=== PATIENT | male | born 1935 | race Caucasian/White ===

== ENCOUNTER 2018-09-25 12:40 | Inpatient (IN) | payer OTHER, MEDICARE ==
[~2018-09-25] VITALS: Ht 180.3 cm; Wt 74.8 kg
--- NOTE | ~2018-09-25 | HC ---
[facility] [place] [address] CONSULTATION Name: ROSITA POLANCO Room #: 216-P [facility] IN M.R.#: [id number] Admission: 09/25/18 Attend Phys: Apoorva Watkins Discharge: Date of : 35 Report #: [id number] THIS REPORT FOR: //name// CC: Elena VIVAR physician/PCP Apoorva Watkins DATE OF SERVICE: 09/28/2018 PALLIATIVE CARE CONSULTATION: REQUESTING PHYSICIAN: Dr. Otto and Dr. Valderrama. HISTORY OF PRESENT ILLNESS: The patient is an 83-year-old male who presented to [facility] with a report of altered mental status as well as dyspnea. 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 He does also have worsening dementia over the last 3 months, significantly worsening difficulty with word finding and confusion per his daughter, who I am speaking with today. The patient has been calling out all day and appears to be confused at most times, occasionally able to respond in a meaningful way, but otherwise difficulty with attention level. The patient seems to report abdominal pain, although it is difficult to tell based on his responses. PAST MEDICAL HISTORY: Dementia, AAA, COPD, hypertension, aortic stenosis, tricuspid regurg, dysphagia. PAST SURGICAL HISTORY: He has had a TURP, right carotid endarterectomy. He has had a right fem-pop bypass. He has had multiple cardiac stents placed. He has had a coronary artery bypass graft. He has also had a right hip ORIF. FAMILY HISTORY: Noncontributory. ALLERGIES: REPORTEDLY ATIVAN CAUSED WORSENING AGITATION; HALDOL WITH SIMILAR RESULTS; MORPHINE WITH GASTRIC UPSET AND PENICILLIN WITH ANAPHYLACTIC TYPE REACTION. SOCIAL HISTORY: The patient is currently DNR. The patient's daughter is present who is the medical decision maker for the patient along with her brothers has participated in his medical care. He is previously a resident at [facility]. REVIEW OF SYSTEMS: Unable to obtain due to medical condition. PHYSICAL EXAMINATION: [facility] [address] [place] [address] CONSULTATION Name: ROSITA POLANCO Room #: 216-P [facility] IN ..#: [id number] Admission: 09/25/18 Attend Phys: Apoorva Watkins Discharge: Date of : 35 Report #: [id number] VITAL SIGNS: Temperature 36.3, pulse 74, respirations 26, blood pressure 90/71, 95% on room air. GENERAL: The patient is not alert. His orientation level was poor. Unable to assess otherwise. HEENT: Extraocular muscles appear to be intact. No scleral icterus. No conjunctival injection. CARDIOVASCULAR: He does have mild lower extremity edema, significant systolic murmur. RESPIRATORY: Diffuse rales noted, significant secretions noted. ABDOMEN: Soft, appears to be mildly tender to palpation, although again difficult to assess at this current point in time. He has diminished bowel sounds noted throughout. LABORATORY DATA: Hemoglobin 13.8, creatinine 1.1. Video swallow with aspirations of thin and nectar thickened liquids. Echo noted in HPI. ASSESSMENT AND PLAN: 1. Severe aortic stenosis. At this point in time, he is not a surgical candidate given his multiple comorbidities and tricuspid regurgitation as well. I did discuss this with daughter who is aware. She desires for him to have a palliative type care and they would prefer [facility] if patient is able to achieve a good level of comfort. Prior to that transfer, did discuss hospice and what that would represent. Patient is currently DNR status. They are understanding that the patient may have a decline in his dysphagia, which may ultimately lead to his from something such as acute kidney injury. Did discuss medications involved in palliative care as well as the use of benzodiazepines for anxiety and morphine for pain management despite its problems with the patient previous. She is amenable to this at this time. I spent approximately 45 minutes in discussion of advanced care planning today. 2. Abdominal pain. We will obtain KUB. Awaiting results for this to ensure that he does not have ileus. Dulcolax p.r.n. suppository if he is found to have ileus or constipation. Otherwise, we will manage symptoms with Roxanol and Ativan for anxiety. 3. Severe systolic heart failure again noted above in first assessment. Discussing hospice, which we will pursue at discharge when the patient is stable from a standpoint of comfort perspective. Thank you very much for the consultation. By: [id number] Duncan Ye DO /nt
--- NOTE | ~2018-09-25 | HC ---
[facility] [place] [address] CONSULTATION Name: ROSITA POLANCO Room #: 216-P [facility] IN M.R.#: [id number] Admission: 09/25/18 Attend Phys: Apoorva Watkins Discharge: Date of : 35 Report #: [id number] THIS REPORT FOR: //name// CC: Elena Nascimento [facility] physician/PCP Apoorva Watkins HISTORY OF PRESENT ILLNESS: The patient is an 83-year-old male who lives in an assisted living. He has had some progressive and worsening dementia. He comes in with progressive weakness, lethargy, confusion and altered mental status over the last couple of weeks. He denies any chest pain or pressure. There is a daughter or granddaughter in the room who is denying any other issues and also states that the family would like medical somewhat conservative measures here as his dementia is fairly profound. He had a trivial elevation of troponin of 0.17 and 0.27. I do not believe this signifies significant myocardial ischemia. He has had a prior bypass surgery and had been followed in the past by my prior partner, Dr. Hill, but has been lost to Cardiology followup since his progressive dementia. He is really not much in the way of any verbal. To me, he denies any chest pain. MEDICATIONS: His medications have been lisinopril 5, sertraline, hydralazine p.r.n., Imodium p.r.n. and an aspirin. He does not appear to be on a statin. He is on Seroquel for agitation, Depakote at night, risperidone 7.5 b.i.d. and Zoloft 50 mg a day. PAST MEDICAL HISTORY: Positive for coronary artery disease with a prior CABG, AAA repair, stent graft, hypertension, hypercholesterolemia, COPD, carotid endarterectomy, significant peripheral vascular disease, right fem-pop and hip fracture. ALLERGIES: PENICILLIN, MORPHINE, HALDOL AND ATIVAN. SOCIAL HISTORY: Lives in assisted memory care. No current tobacco or alcohol. LABORATORY WORK: Creatinine 0.8 and potassium 3.3. LDL was 72. UA suggested possible urinary tract infection. The culture is pending. White count is 13.2, H and H 15 and 45. Troponin is 0.27 that is peak. EKG is sinus rhythm, intraventricular conduction delay, incomplete left bundle and PVCs are noted. The patient has had some nonsustained VT asymptomatic on the monitor. PHYSICAL EXAMINATION: GENERAL: He is fairly somnolent and will respond some. VITAL SIGNS: Blood pressure is 96/52 and pulse is 80s. HEENT: Eyes reveal xanthelasmas. Pharynx is clear. Eyes show arcus senilis. NECK: Shows preserved upstrokes. Faint bruit is noted on the right. LUNGS: Prolonged expiratory phase, but clear. CARDIOVASCULAR: Regular rate and rhythm, S1, S2, distant heart tones without [facility] [address] [place] [address] CONSULTATION Name: ROSITA POLANCO ALAINA Room #: 216-P ADM IN M.R.#: [id number] Admission: 09/25/18 Attend Phys: Apoorva Watkins Discharge: Date of : 35 Report #: [id number] significant murmur. ABDOMEN: Soft. No palpable aorta. EXTREMITIES: Reveal trace nonpitting edema. NEUROLOGIC: Appears to be nonfocal. He moves all extremities. Distal pulses are diminished. I did not ambulate him. MUSCULOSKELETAL: Generalized arthritic changes. ASSESSMENT: 1. Urinary tract infection with elevated white count. 2. Mental status change on top of progressive dementia, probable secondary to infection. 3. Trivial troponin elevation, I do not perceive significant myocardial ischemia here. However, certainly concur with the family, we will opt for conservative medical therapy. 4. Hypertension by history. 5. Degenerative joint disease. 6. Peripheral vascular disease with prior aortic aneurysm repair, fem-pop and carotid endarterectomy. 7. Coronary artery disease with history of coronary artery bypass graft. RECOMMENDATIONS AND PLAN: We will increase the beta rahel due to the nonsustained VT. I will obtain a repeat EKG today in the a.m. and an echo. Barring he does not become unstable, I would opt for medical therapy here and did discuss this with his daughter. I will also discuss with primary. One could consider the addition of Imdur 30 in this setting. I will see how his blood pressure responds to the increased beta rahel. Thank you for asking me to assist in the care of this patient. By: 0919 0032 Jose Roberto Otto MD, FACC /nt
--- NOTE | ~2018-09-25 | EKG ---
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
[~2018-09-25 12:40] MED LIST: ACETAMINOPHEN325 M1 PO; ASPIRIN PO; ASPIRIN325 PO; AUGMENTIN 875-1 EACH PO; BACTROBAN22 GM TP; BENADRYL25 MG PO; CEFTIN 250 MG250 MG PO; CENTRUM SILVER1 EAC4 PO; DEPAKOTE ER500 M1 PO; DEPAKOTE SPRIN125 MG PO; ENOXAPARIN40 MG/0.1 SUBQ; FENTANYL 0.50 MCG/ML IV PUSH; GABAPENTIN 100100 MG PO; GABAPENTIN100 MG PO; GEODON20 M1 IM; HYDROCHLOROTH12.5 M1 PO; HYDROCHLOROTH12.5 MG PO; HYDROCODONE-AP1 EAC6 PO; LEVAQUIN 250 M250 MG PO; LIPITOR20 MG PO; LISINOPRIL20 MG PO; LOPERAMIDE 2 MG2 M1 PO; LORTAB 5 MG/5001 TA1 PO; MAG-AL PLUS SUS30 ML PO; MILK OF MA400 MG/5 M PO; NAMENDA 10 MG T10 MG PO; NAMENDA 5 MG TAB5 M1 PO; NAMENDA XR21 MG PO; ONDANSETRON2 MG/1 ML IV PUSH; ONE DAILY COMP1 EAC1 PO; ORAZINC220 MG PO; POTASSIUM20 PO; PROZAC10 MG PO; REMERON15 MG PO; ROCEPHIN 1 GM VL1 G1 IV; SENNA LAXATIVE8.6 MG PO; SEROQUEL 12.512.5 MG PO; SEROQUEL 25 MG25 M1 PO; STRESS B-COMPL1 EACH PO; TAMSULOSIN HCL0.4 MG PO; TYLENOL325 MG PO; URECHOLINE 10 M10 M1 PO; URECHOLINE 25 M25 M2 PO; ZYPREXA 5 MG TAB5 M1 PO; ZYPREXA 5 MG TAB5 MG PO; [UNRECOGNIZED DRUG - OTHER] PO
[2018-09-25 12:41] VITALS: BP 119/74
[2018-09-25 12:59] LABS: ABSOLUTE NEUTROPHILS 9.9 thou/uL (1.4-8.2); BASOPHILS 0.2 % (0.0-2.0); EOSINOPHILS 0.3 % (0.0-3.0); LYMPHOCYTES 4.1 % (24.0-44.0); MCH 32.3 pg (26.0-34.0); MCHC 33.3 g/dL (28.0-37.0); MCV 96.8 fL (80.0-100.0); MONOCYTES 8.3 % (1.0-8.0); POLYS 87.1 % (36.0-66.0); RBC 4.64 mil/uL (4.50-6.00); RDW 13.6 % (10.5-14.5); WBC 13.2 thou/uL (4.0-11.0)
[2018-09-25 13:13] LABS: PLATELET COUNT 231 thou/uL (150-400)
[2018-09-25 13:17] LABS: AMP/METHAMP Negative (Negative); BARBITURATES Negative (Negative); BENZODIAZEPINES Negative (Negative); COCAINE Negative (Negative); METHADONE Negative (Negative); OPIATES Negative (Negative); PCP Negative (Negative)
[2018-09-25 13:19] LABS: ICTOTEST (BILI CONFIRMATORY) Negative (Negative); URINE BILIRUBIN NEGATIVE (Negative); URINE BLOOD 1+ (Negative); URINE CLARITY HAZY; URINE COLOR YELLOW; URINE GLUCOSE-RANDOM* NEGATIVE (Negative); URINE KETONES 1+ (Negative); URINE LEUKOCYTES-REFLEX 2+ (Negative); URINE NITRITE-REFLEX NEGATIVE (Negative); URINE PROTEIN (DIPSTICK) 1+ (Negative); URINE SPECIFIC GRAVITY 1.025 (1.005-1.035)
[2018-09-25 13:21] LABS: SQUAMOUS None Seen /LPF (0-3); URINE RBC 3-10 Few /HPF (0-2); URINE WBC-REFLEX 6-15 Few /HPF (0-5)
[2018-09-25 13:22] LABS: BACTERIA-REFLEX 1-9 Few /HPF (None Seen); CASTS None Seen /LPF (None Seen); CRYSTALS None Seen /LPF (None Seen)
[2018-09-25 14:10] LABS: ALBUMIN 2.6 g/dL (3.4-5.0); CALCIUM 8.5 mg/dL (8.5-10.1); CREATININE 0.8 mg/dL (0.7-1.3); POTASSIUM 3.3 mmol/L (3.5-5.1); TOTAL BILIRUBIN 0.6 mg/dL (<0.1-1.0); TOTAL PROTEIN 6.1 g/dL (6.4-8.2)
[2018-09-25] MEDS ORDERED: BUSPIRONE HCL10 MG PO (14:31)
[2018-09-25] MEDS ORDERED: LISINOPRIL5 MG PO (14:31)
[2018-09-25] MEDS ORDERED: ZOLOFT50 MG PO (14:32)
[2018-09-25] MEDS ORDERED: ACETAMINOPHEN325 M1 PO (14:33)
[2018-09-25] MEDS ORDERED: ALMACONE LIQUI355 ML PO (14:34)
[2018-09-25 14:35] VITALS: BP 103/65
[2018-09-25] MEDS ORDERED: FLEXERIL PO (14:35)
[2018-09-25] MEDS ORDERED: HYDRALAZINE 10M10 MG PO (14:35)
[2018-09-25] MEDS ORDERED: LOPERAMIDE 2 MG2 M1 PO (14:35)
[2018-09-25 14:43] VITALS: BP 103/65
[2018-09-25 14:46] LABS: CHOLESTEROL 126 mg/dL (<200); HDL CHOLESTEROL 33 mg/dL (>40); LDL CHOLESTEROL 72 mg/dL (<100); TC:HDL 3.8 Ratio (Not establshd); TRIGLYCERIDE 105 mg/dL (<150); VLDL 21 mg/dL (<40)
[2018-09-25 15:00] VITALS: BP 114/78
[2018-09-25 15:11] LABS: TSH 0.727 uIU/mL (0.358-3.740)
[2018-09-25] MEDS ORDERED: MULTI VITAMIN1 EACH PO (19:01)
[2018-09-25 19:19] VITALS: BP 118/83
[2018-09-25] MEDS ORDERED: COLACE100 MG PO (19:30)
--- NOTE | 2018-09-25 19:50 | NUR ---
ASSUMED CARE OF PT FROM ER AT APPROX 1500. PT ALERT AND ORIENTED TO SELF. PT HAS DEMENTIA AND COMES FROM [facility] WITH MEMORY CARE. PT HAD TWO MEDS ON EMAR THAT DAUGHTER STATED HE DID NOT TAKE ANYMORE (DEPAKOTE AND SEROQUEL). MED LIST SENT FROM [facility] AND MED'S RE-RECONCILED. DAUGHTER STATES LOW DOSE BENADRYL WORKS BEST FOR AGITATION. BRANDY CONSULTED FOR CARDIOLOGY. PT DENIES PAIN. PT HAS LOOSE COUGH WITH POOR EFFORT. PT WAS VERY SAD AFTER HIS CHILDREN LEFT AND STATED HE WANTED TO GO HOME. REASSURANCE GIVEN AND DAUGHTER TALKED WITH HIM ON THE PHONE. PT HAS RIGHT BKA AND PROSTHESIS LEFT AT HOME. BED ALARM ON AND PT NEXT TO NURSES STATION.
[2018-09-25 23:03] VITALS: BP 118/83
--- NOTE | 2018-09-26 03:06 | NUR ---
ASSUMED PT CARE AT 1900. PT ORIENTED ONLY TO SELF, AGITATED, TEARFUL AND SAD. PT CONFUSED AND FREQUENTLY ASKED TO GO BACK HOME. FREQUENT REORIENTATION WHEN AWAKE. NO COMPLAINTS OF CHESTPAIN/PAIN, VITAL SIGNS STABLE, ASSESSMENT CHARTED. FALL PRECAUTIONS INPLACE, PT CLOSE TO NURSING STATION FOR CLOSE MONITORING. PT RESTED WELL THROUGH THE NIGHT. PROGRESSING TOWARD PLAN OF CARE. WILL CONTINUE TO MONITOR.
[2018-09-26 04:13] VITALS: BP 116/94
[2018-09-26 05:33] LABS: ALBUMIN 2.6 g/dL (3.4-5.0); CALCIUM 8.2 mg/dL (8.5-10.1); CREATININE 0.8 mg/dL (0.7-1.3); PHOSPHORUS 3.2 mg/dL (2.5-4.9); POTASSIUM 4.2 mmol/L (3.5-5.1); TROPONIN-I 0.27 ng/mL (<0.06)
[2018-09-26 08:00] VITALS: BP 95/52
[2018-09-26 12:30] VITALS: BP 114/65
[2018-09-26 15:50] VITALS: BP 93/61
--- NOTE | 2018-09-26 16:38 | NUR ---
VSS REMAINS NSR WITH BBB FREQUENT PVC'S, TRIPLETS, COUPLETS. LUNGSCOURSE ON LEFT SIDE, PRODUCTIVE COUGH OF WHITE SPUTUM, O2 SAT 93% RA. PT TODAY WITH BREAKFAST HAD COUGHING EPISODE LASTING 1/2 HOUR AFTER BEING FED SCRAMBLED EGGS BY DAUGHTER. DR COURTNEY AWARE AND MADE NPO UNTIL SWALLOW EVAL IN AM. PT REMAINS ORINTED TO JUST NAME. RESTLESS IN BED, INCONTINENT OF LARGE AMTS ORANGECOLOR URINE. WILL CONTINUE TO MONITR AND CARE FOR PTPER PLAN OF CARE
[2018-09-26 20:08] VITALS: BP 133/91
--- NOTE | 2018-09-26 21:55 | EKG ---
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 Setter: WG : 1935 Requested By: Pedro Fritz Order Number: [id number] MD: Migue Mantilla Measurements Intervals [place] Rate: 94 P: 6 [place]: 175 QRS: 265 QRSD: 163 T: 102 QT: 445 QTc: 557 Interpretive Statements Sinus rhythm Paired ventricular premature complexes Probable left atrial enlargement IVCD, consider atypical LBBB Baseline wander in lead(s) II Compared to ECG 06/05/2015 00:28:17 Ventricular premature complex(es) now present Left ventricular hypertrophy no longer present Electronically Signed On 09-26-2018 21:55:41 FIREPOT OPERATOR AND TENDER by Migue Mantilla [email or web address] <ELECTRONICALLY SIGNED> By: Migue Mantilla MD 09/26/18 2155 1244 1244 Migue Mantilla MD /EPI
--- NOTE | 2018-09-26 22:03 | EKG ---
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
[2018-09-27] VITALS (7 sets, daily range): BP systolic 91–139; BP diastolic 62–85
[2018-09-27 04:27] LABS: CALCIUM 8.4 mg/dL (8.5-10.1); POTASSIUM 3.6 mmol/L (3.5-5.1)
[2018-09-27 04:28] LABS: ABSOLUTE NEUTROPHILS 8.1 thou/uL (1.4-8.2); BASOPHILS 0.4 % (0.0-2.0); EOSINOPHILS 0.2 % (0.0-3.0); HEMOGLOBIN 13.7 gm/dL (14.0-18.0); LYMPHOCYTES 2.5 % (24.0-44.0); MCH 32.4 pg (26.0-34.0); MCHC 32.7 g/dL (28.0-37.0); MCV 98.9 fL (80.0-100.0); MONOCYTES 7.3 % (1.0-8.0); PLATELET COUNT 202 thou/uL (150-400); POLYS 89.6 % (36.0-66.0); RBC 4.24 mil/uL (4.50-6.00); RDW 13.5 % (10.5-14.5)
--- NOTE | 2018-09-27 05:27 | NUR ---
ASSUMED PT CARE AT 1900. PT ORIENTED ONLY TO SELF. FREQUENT REORIENTATION DONE. VITAL SIGNS STABLE, ASSESSMENT CHARTED. NO COMPLAINTS OF PAIN. PT VERY RESTLESS AND AGITATED. BENADRYL GIVEN BUT DID NOT SEEM TO HELP. PT RESTED THROUGH THE NIGHT AND BARELY SLEPT. PT CLOSE TO NURSING STATION FOR CLOSE MONITORING. PT DISCONTINUED IV. NEW IV INSERTED IN LEFT FOREARM. FAMILY CALLED TO CHECK ON PT AND REQUESTED THAT PHYSICIAN GIVE HER A CALL (QUESTIONING WHY HE IS NOT YET ON ANTIBIOTICS). MESSAGE WILL BE PASSED ON TO DAY NURSE. PROGRESSING SLOWLY TOWARD PLAN OF CARE. WILL CONTINUE TO CLOSELY MONITOR. VIDEO SWALLOW IN AM.
[2018-09-27 07:05] LABS: LARGE PLATELETS OCCASIONAL
--- NOTE | 2018-09-27 08:37 | EKG ---
[place] [address] [place] [address] ELECTROCARDIOGRAM REPORT Name: ROSITA POLANCO Room #: 216-P ADM IN M.R.#: [id number] Admission: 09/25/18 Attend Phys: Apoorva Watkins Discharge: Date of : 35 Report #: [id number] THIS REPORT FOR: //name// [facility] Test Date: 2018-09-27 Test Time: 07:09:57 Pat Name: ROSITA POLANCO Department: Room: 216 P Gender: M Piano Mover: MILEY : 1935 Requested By: Jose Roberto Otto Order Number: [id number] MD: Jackson Queen Measurements Intervals [place] Rate: 80 P: 63 [place]: 196 QRS: -47 QRSD: 167 T: 128 QT: 461 QTc: 532 Interpretive Statements Sinus rhythm Multiple ventricular premature complexes Left bundle branch block Compared to ECG 09/26/2018 12:08:26 No significant changes Electronically Signed On 09-27-2018 8:37:15 PAYROLL EXAMINER by Jackson Queen [email or web address] <ELECTRONICALLY SIGNED> By: Jackson Queen MD, [facility] 09/27/18 0837 8 8 Jackson Queen MD, [facility] /EPI
--- NOTE | 2018-09-27 13:06 | 2DMMODE ---
[facility] [address] [place] [address] 2 D/M-MODE ECHOCARDIOGRAM Name: ROSITA POLANCO Room #: 216-P [facility] IN ..#: [id number] Admission: 09/25/18 Attend Phys: Apoorva Falcon Discharge: Date of : 35 Date of Service: 09/27/18 1306 Report #: [id number] THIS REPORT FOR: //name// APPROVED REPORT Study performed: 09/27/2018 11:42:16 EXAM: Comprehensive 2D, Doppler, and color-flow Echocardiogram Patient Location: In-Patient Room #: 216 Status: routine BSA: 1.94 HR: 84 bpm BP: 110/85 mmHg Other Information Study Quality: Technically Difficult Technically limited study due to uncooperative patient, severe dementia. Indications Congestive Heart Failure COPD CAD Hypertension/HDD 2D Dimensions RVDd: 48.84 mm IVSd: 12.24 (7-11mm) LVOT Diam: 21.08 (18-24mm) LVDd: 53.57 mm PWd: 13.84 (7-11mm) Ascending Ao: 31.29 (22-36mm) LVDs: 50.91 (25-40mm) Aortic Root: 29.70 mm IVC: 27.00 mm Volumes Left Atrial Volume (Systole) Single Plane 4CH: 93.50 mL Single Plane 2CH: 109.46 mL LA ESV Index: 53.00 mL/m2 Aortic Valve AoV Peak Navid.: 3.27 m/s AO Peak Gr.: 42.86 mmHg LVOT Max P.16 mmHg AO Mean Gr.: 24.69 mmHg LVOT Mean P.49 mmHg AO V2 Mean: 2.37 m/s LVOT Max V: 0.54 m/s AO V2 VTI: 69.85 cm LVOT Mean V: 0.31 m/s [facility] [address] [place] [address] 2 D/M-MODE ECHOCARDIOGRAM Name: ROSITA POLANCO Room #: 216-P [facility] IN ..#: [id number] Admission: 09/25/18 Attend Phys: Apoorva Falcon Discharge: Date of : 35 Date of Service: 09/27/18 1306 Report #: [id number] AUBREE (VTI): 0.47 cm2 LVOT V1 VTI: 9.34 cm AUBREE Vmax: 0.57 cm2 SV (LVOT): 32.59 mL Mitral Valve E/A Ratio: 2.6 MV Decel. Time: 106.86 ms MV E Max Navid.: 1.11 m/s MV A Navid.: 0.43 m/s MV PHT: 30.99 ms IVRT: 72.66 ms Pulmonary Valve PV Peak Navid.: 0.86 m/s PV Peak Gr.: 2.95 mmHg Tricuspid Valve TR Peak Navid.: 3.83 m/s RAP Estimate: 10.00 mmHg TR Peak Gr.: 58.76 mmHg PA Pressure: 69.00 mmHg Left Ventricle Left ventricle is at the upper limits of normal. Mild concentric left ventricular hypertrophy. Left ventricular ejection fraction is severely decreased. LVEF is 20-25%. Transmitral Doppler flow pattern suggests restrictive physiology. Right Ventricle Right ventricle is dilated. Right ventricle is hypokinetic. Atria Left atrium is severely dilated. Right atrium is severely dilated. Aortic Valve Aortic valve is heavily calcified. Mild aortic regurgitation. There is severe valvular aortic stenosis. Calculated aortic valve area is 0.5 cm2 with maximum pressure gradient of 43 mmHg and mean pressure gradient of 25 mmHg. Mitral Valve Mild to moderate mitral annular calcification. Mitral valve leaflets are mildly thickened. Mild to moderate mitral regurgitation. No evidence of mitral valve stenosis. Tricuspid Valve [facility] [address] [place] [address] 2 D/M-MODE ECHOCARDIOGRAM Name: ROSITA POLANCO Room #: 216-P [facility] IN ..#: [id number] Admission: 09/25/18 Attend Phys: Apoorva Falcon Discharge: Date of : 35 Date of Service: 09/27/18 1306 Report #: [id number] The tricuspid valve is normal in structure. Severe tricuspid regurgitation. PAP is estimated at 69 mmHg. Pulmonic Valve The pulmonary valve is normal in structure. Moderate pulmonic regurgitation. Great Vessels The aortic root is normal in size. IVC is dilated and collapses >50% with inspiration. Pericardium There is no pericardial effusion. Moderate left pleural effusion. <Conclusion> Left ventricle is at the upper limits of normal. Left ventricular ejection fraction is severely decreased. Transmitral Doppler flow pattern suggests restrictive physiology. Right ventricle is dilated. Right ventricle is hypokinetic. Left atrium is severely dilated. Right atrium is severely dilated. Aortic valve is heavily calcified. Mild aortic regurgitation. There is severe valvular aortic stenosis. Calculated aortic valve area is 0.5 cm2 with maximum pressure gradient of 43 mmHg and mean pressure gradient of 25 mmHg. Mild to moderate mitral annular calcification. Mitral valve leaflets are mildly thickened. Mild to moderate mitral regurgitation. Mild to moderate mitral regurgitation. Severe tricuspid regurgitation. PAP is estimated at 69 mmHg. Moderate pulmonic regurgitation. The aortic root is normal in size. There is no pericardial effusion. <ELECTRONICALLY SIGNED> By: Jose Roberto Otto MD, FACC 09/27/18 1306 1306 1306 Jose Roberto Otto MD, FACC /INF
--- NOTE | 2018-09-27 13:46 | NUR ---
PATIENT ADMITS WITH AMS, HE RESIDES AT [facility]. SP WITH [place]AS RN COORDINATOR AT [facility] WHO REPORTS COLLAR CUTTER PATIENT USES A WALKER AND ALSO HAS WC. PATIENT ABLE TO TRANSFER SELF TO/FROM AND PROPELS SELF IN WC. UPDATED FACILITY. THERAPY EVALS IN PROCESS. [place]AS TO COMPLETE ONSITE EVAL FOR RETURN TO FACILITY AT [facility].
--- NOTE | 2018-09-27 20:14 | NUR ---
ASSUMED CARE OF PT AT 0700. PT ORIENTED TO SELF, CONFUSED AND FUSSY. PT OFTEN MOANS OR CRIES OUT FOR HELP. REASSURANCE PROVIDED AND PT CLOSE TO NURSES STATION. DAUGHTER AT THE BEDSIDE TODAY. PT HAD VIDEO SWALLOW STUDY AND PLACED ON PUREED AND HONEY THICK LIQUIDS. MEDS CRUSHED IN APPLE SAUCE. PT HAS TO BE REMINDED TO SWALLOW. SWALLOW PRECAUTIONS FOLLOWED. PT HAS LOOSE WET COUGH WITH POOR EFFORT. HE WAS ABLE TO EXPEL SMALL AMOUNT OF STRINGY CLEAR SPUTUM. PT GIVEN VAPROATE NA PIGGY BACK TO AID WITH AGITATION. WILL CONT WITH POC.
--- NOTE | 2018-09-28 03:37 | NUR ---
ASSUMED CARE 0. VSS. ASSESSMENT CHARTED. PT ALERT TO SELF AND WILL FOLLOW SIMPLE COMMANDS. PT IS CONFUSED AND CONCERNED ABOUT " THE RAIN, AND SOMEONE TO TAKE CARE OF THE KIDS" PT REASSURED AND CALMED DOWN. IVPB MEDS GIVEN PER EMAR FOR AGITATION. MEDS PER EMAR CRUSHED WITH APPLE SAUCE, TOLERATED WELL WITH SMALL BITES. Q2 TURNS. PLAN FOR AM LABS. WILL CONTINUE TO MONITOR AND WITH POC.
[2018-09-28 03:40] LABS: BASOPHILS 0.3 % (0.0-2.0); EOSINOPHILS 0.1 % (0.0-3.0); HEMATOCRIT 41.5 % (42.0-52.0); HEMOGLOBIN 13.8 gm/dL (14.0-18.0); LYMPHOCYTES 2.3 % (24.0-44.0); MCH 32.5 pg (26.0-34.0); MCHC 33.3 g/dL (28.0-37.0); MCV 97.7 fL (80.0-100.0); MONOCYTES 7.3 % (1.0-8.0); PLATELET COUNT 197 thou/uL (150-400); RBC 4.25 mil/uL (4.50-6.00); WBC 8.8 thou/uL (4.0-11.0)
[2018-09-28 03:53] LABS: CALCIUM 8.5 mg/dL (8.5-10.1); CREATININE 1.1 mg/dL (0.7-1.3); POTASSIUM 3.9 mmol/L (3.5-5.1)
[2018-09-28 04:45] VITALS: BP 101/66
[2018-09-28 07:50] VITALS: BP 109/71
[2018-09-28 12:30] VITALS: BP 90/71
--- NOTE | 2018-09-28 13:58 | NUR ---
pallative care consult. Sp with [facility] if patient to return to Assisted living they can accomadate patient at [facility] on hospice service.
[2018-09-28 20:39] VITALS: BP 123/74
--- NOTE | 2018-09-28 20:47 | NUR ---
ASSUMED CARE OF PT AT 0700. PT LETHARGIC AND UNABLE TO ANSWER QUESTIONS. PT HAD TACHYPNEA AND WAS FUSSY AND MOANING. PT HAD SHORT PERIODS OF SLEEP. PT'S DISCOMFORT PARTIALLY RELIEVED BY REPOSITIONING, IV FENT, AND REASSURANCE. PT REQUIRED SOMEONE IN THE ROOM TO REASSURE HIM. DAUGHTER, MAR, VERY INVOLVED IN PT CARE. DAUGHTER SPOKE WITH DR. MAHONEY IN THE AFTERNOON AND CARE PLAN WAS AGREED ON. HOWEVER WHEN GIVING REPORT TO NEXT SHIFT NURSE, MAR DID NOT AGREE WITH GIVING PT BENZOS FOR ANXIETY. PT COMPLAINED OF ABDOMINAL PAIN (MOANING AND MOTIONING TO ABDOMIN) AND DR. MAHONEY ORDERED KUB. PT STARTED ON ORAL MORPHINE BUT CONTINUED TO COMPLAIN OF ABDOMINAL PAIN. AIR TRAFFIC COORDINATOR NURSE TO CALL DR. MAHONEY.
--- NOTE | 2018-09-29 03:22 | NUR ---
ASSUMED CARE 1899. ASSESSMENT CHARTED. COMFORT CARE. PT ALERT TO NAME AND BIRHTDATE, CONFUSED, C/O AB PAIN. PT DAUGHTER AND SON AT BEDSIDE. PT C/O AB PAIN AT BEGINING OF SHIFT, CONTROLED WITH PRN MEDS PER EMAR, FENTANYL AND MORPHINE. PT CALMS DOWN WITH THERAPUTIC COMMUNICATION. PT DAUGHTER MAR DOES NOT WANT BENZOS GIVEN. SPOKE TO DOCTOR MAHONEY OVER PHONE REGARDING PAIN MANAGMENT AND CARE. FAMILY IN HOPES OF PT RETURNING TO ASSISTED LIVING SOON. WILL CONTINUE TO MONITOR AND WITH POC.
[2018-09-29 08:27] VITALS: BP 92/63
--- NOTE | 2018-09-29 12:10 | NUR ---
FOLLOWING FOR DC PLANNING. CLINCIAL INFO REVIEWED. MET WITH PT'S DTR/DPOA MAR. MAR WOULD LIKE REFERRAL TO HOSPICE HOUSE AND IF UNABLE TO ADMIT THERE, MAR AGREEABLE TO RETURN TO [facility] WITH [facility]. OUTSIDE HOSPITAL DNR COMPLETED. REFERRAL TO HOSPICE AND SPOKE WITH INTAKE. [facility] WILL BE HER TO EVAL AND MEET WITH MAR AT [phone] AND MAR AGREEABLE. CCU RN AND IESHA IN [employer]YOGEN[employer] ENGINEER AT [facility] UPDATED.
== END 2018-09-29 15:05 | disposition hospice, inpatient (51) | DRG 871 ==
LOC: ER 12:40 → EROBS 14:23 → 2N 14:23
PROVIDERS: Emergency Medicine; Hospitalist; ADMIT Hospitalist
DX: A41.9 Sepsis, unspecified organism (principal); I21.4 Non-ST elevation (NSTEMI) myocardial infarction; N39.0 Urinary tract infection, site not specified; I50.20 Unspecified systolic (congestive) heart failure; I47.2 Ventricular tachycardia; G93.40 Encephalopathy, unspecified; K52.9 Noninfective gastroenteritis and colitis, unspecified; I25.10 Atherosclerotic heart disease of native coronary artery without angina pectoris; E78.5 Hyperlipidemia, unspecified; J44.9 Chronic obstructive pulmonary disease, unspecified; F03.90 Unspecified dementia, unspecified severity, without behavioral disturbance, psychotic disturbance, mood disturbance, and anxiety; I71.4 Abdominal aortic aneurysm, without rupture; E86.0 Dehydration; E78.00 Pure hypercholesterolemia, unspecified; I73.9 Peripheral vascular disease, unspecified; M19.90 Unspecified osteoarthritis, unspecified site; Z66 Do not resuscitate; I35.0 Nonrheumatic aortic (valve) stenosis; I11.0 Hypertensive heart disease with heart failure; I65.29 Occlusion and stenosis of unspecified carotid artery; R13.10 Dysphagia, unspecified; M62.84 Sarcopenia; F41.9 Anxiety disorder, unspecified; Z51.5 Encounter for palliative care; Z95.1 Presence of aortocoronary bypass graft; Z95.820 Peripheral vascular angioplasty status with implants and grafts; Z88.6 Allergy status to analgesic agent; Z88.0 Allergy status to penicillin; Z88.8 Allergy status to other drugs, medicaments and biological substances; Z95.5 Presence of coronary angioplasty implant and graft; Z87.891 Personal history of nicotine dependence; Z79.82 Long term (current) use of aspirin; Z79.899 Other long term (current) drug therapy
CPT/HCPCS: 10081; 10797